=== PATIENT | male | born 1965 | race Hispanic/Latino ===

== ENCOUNTER → 2024-05-04 09:34 | Outpatient (CLI) | payer OTHER, SELFPAY ==
[2024-05-04 10:24] LABS: Add Manual Diff / Slide Review NO; Basophils Absolute Auto 0 /uL (0-100); Basophils Percent Auto 0.7 % (0-2); Eosinophils Absolute Auto 400 /uL (0-450); Eosinophils Percent Auto 6.8 % (2-4); Hematocrit 41.8 % (41-53); Hemoglobin 14.8 g/dL (13.5-17.5); Lymphocytes Absolute Auto 2000 /uL (1100-4500); Lymphocytes Percent Auto 36.7 % (25-40); Mean Corpuscular HGB Conc 35.5 % (30-36); Mean Corpuscular Hemoglobin 33.4 PG (26-34); Mean Corpuscular Volume 94.1 fL (80-100); Monocytes Absolute Auto 500 /uL (0-900); Neutrophils Absolute Auto 2500 /uL (1500-7000); Neutrophils Percent Auto 45.8 % (50-75); Platelet Count 182 X10^3/uL (150-400); Red Blood Cell Count 4.44 X10^6/uL (4.5-5.9); Red Cell Distribution Width 13.8 % (11.6-14.8); White Blood Cell Count 5.4 X10^3/uL (4.5-11.0)
[2024-05-04 10:33] LABS: Hemoglobin A1C% w Est Avg Glu 5.2 % (4.0-6.0)
[2024-05-04 10:45] LABS: Alanine Aminotransferase 43 IU/L (<50); Albumin 4.1 g/dL (3.5-5.0); Albumin Globulin Ratio 1.6 (1.0-2.8); Alkaline Phosphatase 88 U/L (38-126); Aspartate Aminotransferase 36 IU/L (17-59); BUN Creatinine Ratio 18.7 (6-22); Blood Urea Nitrogen 14 mg/dL (9-20); Carbon Dioxide 26 mmol/L (22-32); Chloride 106 mmol/L (98-107); Cholesterol 109 mg/dL (140-199); Estimated Glomerular Filt Rate > 60 mL/min (>60); Globulin 2.5 g/dL (1.7-4.1); Glucose 122 mg/dL (70-100); HDL Cholesterol 39 mg/dL (40-60); HEMOLYSIS < 15 (0-50); LDL Cholesterol Calculated 57 mg/dL (<100); Potassium 4.5 mmol/L (3.4-5.1); Sodium 139 mmol/L (137-145); Total Protein 6.6 g/dL (6.3-8.2); Triglycerides 63 mg/dL (35-150)
[2024-05-04 11:03] LABS: Vitamin D 25 Hydroxy (D3) 27.4 ng/mL (30.0-100.0)
[2024-05-06 16:00] LABS: Hep C Virus Ab w/Reflex Quant NEGATIVE s/c (NEGATIVE)
== END ==
PROVIDERS: PCP Family Medicine; Referring Provider Family Medicine; Visit Provider Family Medicine
DX: Z76.89 Persons encountering health services in other specified circumstances (principal); Z13.9 Encounter for screening, unspecified; Z13.1 Encounter for screening for diabetes mellitus; Z12.5 Encounter for screening for malignant neoplasm of prostate; Z13.220 Encounter for screening for lipoid disorders; Z11.59 Encounter for screening for other viral diseases; E55.9 Vitamin D deficiency, unspecified
CPT/HCPCS: 36415; 80053; 80061; 82306; 83036; 84153; 85025; 86803

== ENCOUNTER → 2024-05-17 08:07 | Outpatient (CLI) | payer OTHER, SELFPAY ==
--- NOTE | 2024-05-17 08:08 | DI.CT.S_ITS ---
PROCEDURE: CT LUNG LOW DOSE SCREENING INDICATIONS: 45 year smoking hx TECHNIQUE: Noncontrast 2.0-2.5 mm thick sections acquired from the pulmonary apices to the posterior costophrenic angles. 7 mm thick axial MIP, and 5 mm coronal and sagittal reformats were then acquired. For radiation dose reduction, the following was used: automated exposure control, adjustment of mA and/or kV according to patient size. COMPARISON: None. FINDINGS: Image quality: Diagnostic. Lower Neck: No enlarged lymph nodes. Thyroid: No thyroid nodules which require sonographic follow up, per consensus guidelines. Axillae: No enlarged lymph nodes. Chest Wall: Unremarkable. Bones: Unremarkable. Lungs and Pleura: 4 mm nodule within the inferior lingula (series 3, image 200). Tiny 3 mm subpleural nodule within the posterior right lung apex (series 3, image 63). 3 mm subpleural nodule within the lateral left lower lobe (series 3, image 203). 3 mm calcified nodule within the posterior right lower lobe (3, 183). Heart: Heart size is normal. No pericardial effusion. Thoracic Vessels: The aorta and pulmonary arteries demonstrate normal size. Mediastinum and Rocio: No enlarged lymph nodes. Esophagus: No wall thickening. No hiatal hernia. Upper Abdomen: Visualized upper abdomen solid organs and bowel loops appear normal. IMPRESSION: 4 mm nodule within the inferior lingula and additional smaller nodules, 1 of which appears calcified. LUNG-RADS 2; continue annual screening in 12 months. Dictated by: Chuy Calvillo M.D. on 05/17/2024 at 8:44 Approved by: Chuy Calvillo M.D. on 05/17/2024 at 8:58
--- NOTE | 2024-05-17 08:08 | DI.US.S_ITS ---
PROCEDURE: US ABD AORTA ANEURYSM SCREEN INDICATIONS: 47 year smoking hx TECHNIQUE: Real time scanning was performed of the aorta and iliac arteries, with image documentation. COMPARISON: None. FINDINGS: Aorta: Proximal aortic diameter measures 2.4 cm. Mid-aorta measures 1.9 cm. Distal aortic diameter is 1.8 cm. Iliac arteries: Right common iliac artery measures 1.6 cm. Left common iliac artery measures 1.3 cm. IMPRESSION: No aneurysmal dilation. Dictated by: Laverne Lewis M.D. on 05/17/2024 at 11:53 Approved by: Laverne Lewis M.D. on 05/17/2024 at 11:54
== END ==
LOC: CT 08:08
PROVIDERS: PCP Family Medicine; Referring Provider Family Medicine; Visit Provider Family Medicine
DX: Z87.891 Personal history of nicotine dependence (principal); Z12.2 Encounter for screening for malignant neoplasm of respiratory organs; Z13.6 Encounter for screening for cardiovascular disorders; R91.8 Other nonspecific abnormal finding of lung field
CPT/HCPCS: 71271; 76706

== ENCOUNTER 2024-08-20 12:40 | Day surgery (SDC) | payer OTHER, SELFPAY ==
--- NOTE | 2024-08-20 | PATH_ITS ---
[facility] Accession Number: [id number] No. of containers..01 Tissue . 01 Material submitted: . colon - TRANSVERSE COLON POLYPS . 01 Diagnosis: TRANSVERSE COLON POLYPS, BIOPSY: Tubular adenomas. Additional colonic mucosa with benign lymphoid aggregate. MRV 08/23/2024 1403 Local . 01 Electronically signed: . Sommer Burks MD, Pathologist NPI- [id number] . 01 Gross description: . Received in formalin with two patient identifiers and transverse colon polyp, is a single prarish soft tissue fragment 0.7 cm in greatest dimension. Submitted in cassette A1. ([id number]) /ALESIA 08/21/2024 1023 Local . 01 Pathologist provided ICD-10: D12.3 . 01 CPT . 522369 Specimen Comment: A courtesy copy of this report has been sent to [phone] Performed at: [address] [facility] [address], [place], [place] [id number] MD Edouard Montez MD Phone: [phone]
[2024-08-20 13:22] VITALS: BP 113/74; PULSE 68; RESP 16; TEMP 36.2; O2SAT 99
--- NOTE | 2024-08-20 14:19 | PM.HP.1 ---
History of Present Illness History of Present Illness Date Patient Seen: 08/20/24 Time Patient Seen: 14:19 Chief complaint: Colonoscopy Narrative: 59-year-old man here for screening colonoscopy. Last colonoscopy 10 years ago. No family history of colon cancer. No abdominal concerns today. PFSH Social History marital status: number of children: 3 household members: family ( and two children living in home) lives independently: Yes Previous occupational history: Boat construction Smoking Status: Current some day smoker Tobacco: How many years used: 45 alcohol intake: current substance use type: does not use Meds Home Medications and Allergies Home Medications Medication Instructions Recorded Confirmed Type triamcinolone acetonide 0.1 % 1 applic topical BID #80 grams 04/26/24 04/26/24 Rx topical cream sodium,potassium,mag sulfates 17.5 See Rx Instructions PO .COMPLEX 07/12/24 Rx gram-3.13 gram-1.6 gram oral soln #354 mL (Suprep Bowel Prep Kit) Allergies Allergy/AdvReac Type Severity Reaction Status Date / Time No Known Drug Allergies Allergy Verified 08/20/24 13:20 Exam Vital Signs (past 8 hours): - 08/20/24 13:22 Temperature 97.2 F L Pulse Rate 68 Respiratory Rate 16 Blood Pressure 113/74 Pulse Oximetry 99 Oxygen Delivery Method Room Air Oxygen Delivery Method Room Air Narrative Exam Narrative: General adult man alert oriented no acute distress Chest nonlabored respiration Extremities warm well perfused Assessment & Plan Assessment & Plan narrative: The patient requires colorectal screening and colonoscopy is recommended. Technical details were discussed. Risks, benefits, alternatives explained. Risks including but not limited to myocardial infarction, aspiration, bleeding, pain, missed lesion, incomplete examination, need for further radiographic studies, intestinal injury, and need for major abdominal surgery were discussed. All questions were answered to their satisfaction, and they are in agreement with this plan. Time-Based Coding :: [TOTAL MINUTES] spent with patient and on the chart (including review of chart, obtaining history, exam, reviewing outside data, placing orders, documenting exam and treatment plan, and counseling patient) on [DATE].
--- NOTE | 2024-08-20 14:23 | P.OP.COLON_ITS ---
Operative Date/Time/Diagnoses Date of procedure: 08/20/24 Time of procedure: 14:41 Pre-op diagnosis: Colorectal screening Post-op diagnosis: other (Colonic polyp x1) Procedure & Clinicians Study performed: Screening colonoscopy and polypectomy Same procedure as scheduled: Yes Indications: Colorectal screening Surgeon: Velasquez Sadler Procedure Notes Procedure in detail: The history and physical was performed/updated and the patient is ASA class is 2. The procedure was discussed in detail with the patient. Potential risks complications including infection, bleeding, missed diagnosis, perforation, need for surgery, and were explained. Their questions were answered and informed consent was obtained. Patient was brought to the procedure room and placed standard monitoring equipment. The patient's vital signs were monitored continuously throughout the entire procedure. Prior to starting time-out was performed. The patient was placed in the left lateral recumbent position. Procedural sedation was administered by anesthesia. Examination began with a thorough inspection of the perianal area there was no evidence of fissures, fistulae, external hemorrhoids or cutaneous malignancy. The colonoscopy scope was then placed into the anal canal and was advanced to the cecum, which was identified by the ileocecal valve, the appendiceal orifice and the confluence of the taenia. The scope was then slowly withdrawn examining colon thoroughly in all directions, irrigating it of any residual stool. The scope was retroflexed within the rectum The patient tolerated the procedure well. They will be discharged once criteria are met. The prep was of good/excellent quality. The withdrawl time was 7 minutes. FINDINGS * Transverse colon 3 mm polyp removed with biopsy forceps * Diverticulosis of distal colon Specimen(s): other (Transverse colon polyp) Impression: Colonic polyp x1 Post-procedure Recommendations: High fiber diet Plan for aftercare: Follow up dependent on pathology findings Disposition: same day surgery
[2024-08-20 14:38] VITALS: BP 112/76; PULSE 68; RESP 18; TEMP 36.9; O2SAT 95
[2024-08-20 14:48] VITALS: BP 105/74; PULSE 64; RESP 14; O2SAT 95
[2024-08-20 14:53] VITALS: BP 115/84; PULSE 67; RESP 16; O2SAT 97
== END 2024-08-20 15:15 | disposition home or self-care (01) ==
PROVIDERS: PCP Family Medicine; Referring Provider Surgery; Visit Provider Surgery
PROC: 0DJD8ZZ Inspection of Lower Intestinal Tract, Via Natural or Artificial Opening Endoscopic (ICD-10-PCS; CPT 45378; principal; 2024-08-20 14:00)
DX: Z12.11 Encounter for screening for malignant neoplasm of colon (principal); K57.30 Diverticulosis of large intestine without perforation or abscess without bleeding; D12.3 Benign neoplasm of transverse colon
CPT/HCPCS: 45380; J2704